=== PATIENT | male | born 1955 | race African-American/Black ===

== ENCOUNTER 2018-06-14 19:37 | Emergency (ER) | payer OTHER ==
--- OUTSIDE RECORDS SUMMARY | 2018-06-14 19:40 | XMS REPORT | Clinical Summary ---
:1955 Author Organization [facility] Address [address] [place] [address] Care Team Providers Name Role Phone Jeromy Osorio MD Primary Care Provider Allergies Active Allergy Reactions Severity Noted Date Comments No Known Drug Allergies 01/03/2016 Medications Medication Sig Dispensed Refills Start Date End Date Status atorvastatin Take 80 mg by 1 01/09/2016 Active (LIPITOR) 80 MG mouth nightly. tablet carvedilol (COREG) Take 25 mg by 3 01/15/2016 Active 25 MG tablet mouth 2 (two) times a day. warfarin (COUMADIN) Take 5 mg by 99 12/27/2015 Active 5 MG tablet mouth once daily. benzonatate TAKE 1 CAPSULE 30 capsule 0 04/23/2016 Active (TESSALON) 200 MG BY MOUTH EVERY capsule 6 HOURS NEEDED FOR COUGH amIODarone Take 200 mg by 0 Active (PACERONE) 200 MG mouth daily. tablet umeclidinium Inhale 62.5 0 Active (INCRUSE ELLIPTA) mcg daily. 62.5 mcg/actuation blister with device ondansetron ODT Take 4 mg by 0 Active (ZOFRAN-ODT) 4 MG mouth every 8 disintegrating (eight) hours tablet as needed for nausea or vomiting. omeprazole Take 40 mg by 0 Active (PriLOSEC) 40 MG mouth daily. capsule fexofenadine Take 180 mg by 0 Active (LOCO) 180 MG mouth daily. tablet ADVAIR DISKUS 250-50 INHALE 1 PUFF 60 each 3 03/21/2017 Active mcg/dose DISKUS PO BID. sacubitril-valsartan Entresto 24 mg-26 mg tablet 0 Active (ENTRESTO) 24-26 mg Take 1 tablet twice a day by oral route. tablet per tablet furosemide (LASIX) TAKE 1 TABLET 90 tablet 0 03/23/2018 Active 40 mg tablet BY MOUTH EVERY DAY potassium chloride TAKE 1 TABLET 90 tablet 0 04/23/2018 Active (K-DUR,KLOR-CON) 10 BY MOUTH EVERY MEQ CR tablet DAY losartan (COZAAR) 50 Take 50 mg by 3 02/04/2016 Discontinued MG tablet mouth once 8 daily. furosemide (LASIX) Take 40 mg by 0 Discontinued 40 mg tablet mouth 2 (two) 8 times a day. furosemide (LASIX) TAKE 1 TABLET 30 tablet 0 05/22/2017 Discontinued 40 mg tablet BY MOUTH EVERY 8 DAY furosemide (LASIX) TAKE 1 TABLET 30 tablet 0 06/26/2017 Discontinued 40 mg tablet BY MOUTH EVERY 8 DAY potassium chloride TAKE 1 TABLET 30 tablet 0 08/14/2017 Discontinued (K-DUR,KLOR-CON) 10 BY MOUTH EVERY 8 MEQ CR tablet DAY furosemide (LASIX) TAKE 1 TABLET 30 tablet 0 09/08/2017 Discontinued 40 mg tablet BY MOUTH EVERY 8 DAY potassium chloride TAKE 1 TABLET 30 tablet 0 09/16/2017 Discontinued (K-DUR,KLOR-CON) 10 BY MOUTH EVERY 8 MEQ CR tablet DAY furosemide (LASIX) TAKE 1 TABLET 30 tablet 0 10/06/2017 Discontinued 40 mg tablet BY MOUTH EVERY 8 DAY potassium chloride TAKE 1 TABLET 90 tablet 0 10/23/2017 Discontinued (K-DUR,KLOR-CON) 10 BY MOUTH EVERY 8 MEQ CR tablet DAY furosemide (LASIX) TAKE 1 TABLET 90 tablet 0 11/03/2017 Discontinued 40 mg tablet BY MOUTH EVERY 8 DAY potassium chloride TAKE 1 TABLET 90 tablet 0 01/23/2018 Discontinued (K-DUR,KLOR-CON) 10 BY MOUTH EVERY 8 MEQ CR tablet DAY levoFLOXacin Take 1 tablet 7 tablet 0 02/12/2018 (LEVAQUIN) 500 MG (500 mg total) 8 tablet by mouth daily for 7 days. Active Problems No known active problems Resolved Problems Problem Noted Date Resolved Date Congestive heart failure 10/13/2017 03/24/2018 Noctural Wheezing and coughing- likely secondary to CHF 03/11/2017 03/24/2018 COPD (chronic obstructive pulmonary disease) 03/24/2018 Encounters Date Type Specialty Care Team Description 04/23/2018 Refill PulmonKerwin Rodriguez MD 03/21/2018 Refill Pulmonology Kerwin Boogie MD 03/16/2018 Clinical Support Pulmonology Maikol Allred Chronic obstructive pulmonary disease, unspecified COPD type (HCC) 03/03/2018 Office Visit Pulmonology Kerwin Boogie MD Chronic obstructive pulmonary disease, unspecified COPD type (Primary Dx) 02/12/2018 Telephone Pulmonology Kerwin Boogie MD 01/23/2018 Refill PulmonKerwin Rodriguez MD 11/03/2017 Refill Pulmonology Kerwin Boogie MD 10/23/2017 Refill Pulmonology Kerwin Boogie MD 10/13/2017 Office Visit Pulmonology Kerwin Boogie MD Chronic obstructive pulmonary disease, unspecified COPD type (Primary Dx); Congestive heart failure, unspecified congestive heart failure chronicity, unspecified congestive heart failure type 10/05/2017 Refill Pulmonology Kerwin Boogie MD 09/16/2017 Refill Pulmonology Kerwin Boogie MD 09/08/2017 Refill Pulmonology Kerwin Boogie MD 08/13/2017 Refill Pulmonology Kerwin Boogie MD 06/26/2017 Refill Pulmonology Kerwin Boogie MD after 06/13/2017 Immunizations Name Dates Previously Given Next Due FLUZONE HIGH-DOSE PF 03/07/2016 Pneumococcal Conjugate 13-Valent 03/06/2015 Pneumococcal Polysaccharide 07/27/2009 Family History Medical History Relation Name Comments Diabetes Mother Heart attack Mother Stroke Mother Relation Name Status Comments Mother Social History Tobacco Use Types Packs/Day Years Used Date Never Smoker Smokeless Tobacco: Never Used Alcohol Use Drinks/Week oz/Week Comments No Sex Assigned at Date Recorded Not on file Job Start Date Occupation Industry Not on file Not on file Not on file Travel History Travel Start Travel End No recent travel history available. Last Filed Vital Signs Vital Sign Reading Time Taken Blood Pressure 92/60 03/03/2018 4:43 PM CDT Pulse 59 03/03/2018 4:43 PM CDT Temperature 36.7 C (98.1 F) 03/03/2018 4:43 PM CDT Respiratory Rate 14 03/03/2018 4:43 PM CDT Oxygen Saturation 95% 03/03/2018 4:43 PM CDT Inhaled Oxygen Concentration - - Weight 68 kg (150 lb) 03/03/2018 4:43 PM CDT Height 170.2 cm (5' 7") 10/13/2017 4:37 PM CDT Body Mass Index 23.49 03/03/2018 4:43 PM CDT Plan of Treatment Date Type Specialty Care Team Description 06/25/2018 Office Visit Pulmonology Kerwin Boogie MD [address] [facility] [address] [place] [id number] Health Maintenance Due Date Last Done Comments COLON CANCER SCREENING 2004 SHINGLES VACCINES (1 of 2) 2004 INFLUENZA VACCINE 01/14/2018 03/07/2016 Results Not on fileafter 06/13/2017 Insurance Payer Benefit Plan / Group Subscriber ID Type Phone Address [facility] x[facility]xxx O Advance Directives Patient has advance care planning documents on file. For more information, please contact:[place] [address]
[2018-06-14 21:19] LABS: Absolute Lymphocytes (CBC) 1.5 K/uL (0.7-4.9); Absolute Monocytes 0.5 K/uL (0.1-1.3); Absolute Neutrophil 3.5 K/uL (1.8-8.0); Basophils % 0.8 % (0-1.3); Eosinophils % 1.7 % (0-4.4); Hematocrit 42.6 % (39.6-49.0); Lymphocytes % 26.6 % (15.3-44.8); MPV 7.7 fL (7.6-11.3); Monocytes % 8.6 % (3.3-12.3); RBC Red Blood Cell Count 4.96 M/uL (4.33-5.43)
[2018-06-14 21:21] LABS: Protime INR 1.88
[2018-06-14 21:37] LABS: Albumin 3.3 g/dL (3.4-5.0); Bilirubin Direct 0.1 mg/dL (0-0.2); Bilirubin Total 0.5 mg/dL (0.2-1.0); Magnesium 2.2 mg/dL (1.8-2.4); Protein, Total 7.3 g/dL (6.4-8.2); Troponin (Emerg Dept Use Only) 0.02 ng/mL (0.0-0.045)
--- NOTE | 2018-06-14 21:54 | RAD REPORT ---
EXAM DESCRIPTION: RAD - Chest Single View - 06/14/2018 9:35 pm CLINICAL HISTORY: shortness of breath Chest pain. COMPARISON: No comparisons FINDINGS: Portable technique limits examination quality. Mild interstitial pulmonary edema is present. The heart is mildly enlarged in size with a dual lead p acer/defibrillator device present. No displaced fractures. IMPRESSION: Mild CHF.
[2018-06-14 22:53] LABS: Urine Blood 1+ (NEG); Urine Glucose NEGATIVE (NEG); Urine Protein NEGATIVE (NEG); Urine pH 6.5 (5.0-7.0)
--- NOTE | 2018-06-14 23:33 | EDPHYS ---
Physician Documentation [facility] Name: Pepe Cruz Age: 62 yrs Sex: Male : 1955 Arrival Date: 06/14/2018 Time: 19:41 Bed 20 Private MD: out of town, doctor ED Physician Luis E Bland HPI: 06/14 20:59 This 62 yrs old Black Male presents to ER via Ambulatory with complaints of Shoulder jmm Pain, Back Pain. 20:59 The patient presents with pain that is acute, with no known mechanism of injury. The jmm symptoms are located in the left trapezius. Onset: The symptoms/episode began/occurred last night. The pain does not radiate. This is a 62 year old male with a history of htn, heart failure, copd that presents to the ED with left sided back pain and shortness of breath beginning last night. shortness of breath was relieved this morning with inhaler. patient currently denies chest pain, fever. family sates the patient had a cough earlier today. . Historical: - Allergies: 20:13 No Known Allergies; fc - Home Meds: 20:13 Advair Diskus inhalation Inhl 1 puff 2 times per day [Active]; Incruse Ellipta 62.5 fc mcg/actuation inhalation dsdv 1 puff once daily [Active]; warfarin 5 mg Oral tab 1 tab daily but on Friday only 1/2 tab [Active]; atorvastatin 80 mg oral tab 1 tab nightly [Active]; furosemide 40 mg Oral tab 1 tab once daily [Active]; Entresto 49-51 mg oral tab 1 tab daily [Active]; carvedilol 25 mg oral tab 1 tab 2 times per day [Active]; omeprazole 40 mg Oral cpDR 1 cap once daily [Active]; potassium chloride 10 mEq Oral cpER 1 cap once daily [Active]; - PMHx: 20:13 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 - Social history:: Smoking status: Patient/guardian denies using tobacco. - Ebola Screening: : Patient negative for fever greater than or equal to 101.5 degrees Fahrenheit, and additional compatible Ebola Virus Disease symptoms Patient denies exposure to infectious person Patient denies travel to an Ebola-affected area in the 21 days before illness onset. ROS: 20:59 Constitutional: Negative for fever, chills, and weight loss, Cardiovascular: Negative jmm for chest pain, palpitations, and edema. 20:59 Abdomen/GI: Negative for abdominal pain, nausea, vomiting, diarrhea, and constipation. 20:59 Respiratory: Positive for shortness of breath. 20:59 Back: Positive for pain with movement. 20:59 All other systems are negative. Exam: 20:59 Head/Face: atraumatic. Eyes: EOMI, no conjunctival erythema appreciated ENT: Moist jmm Mucus Membranes Neck: Trachea midline, Supple Chest/axilla: Normal chest wall appearance and motion. 20:59 Abdomen/GI: Non distended, soft Back: Normal ROM Skin: General appearance color normal MS/ Extremity: Moves all extremities, no obvious deformities appreciated, no edema noted to the lower extremities Neuro: Awake and alert, normal gait Psych: Behavior is normal, Mood is normal, Patient is cooperative and pleasant 20:59 Constitutional: The patient appears in no acute distress, alert, awake. 20:59 Cardiovascular: Rate: normal, Rhythm: regular, Pulses: no pulse deficits are appreciated. 20:59 Respiratory: the patient does not display signs of respiratory distress, Respirations: normal, Breath sounds: are clear throughout. 20:59 Abdomen/GI: Inspection: abdomen appears normal. 20:59 Back: pain, that is mild, of the left trapezius. 20:59 Skin: Appearance: Color: normal in color. 20:59 Neuro: Orientation: is normal, Mentation: is normal, Memory: is normal. 20:59 Psych: Behavior/mood is pleasant, cooperative. Vital Signs: 19:53 BP 110 / 78; Pulse 77; Resp 18; Temp 97.7(O); Pulse Ox 98% on R/A; Weight 71.21 kg (R); fc Height 5 ft. 7 in. (170.18 cm) (R); Pain 4/10; 20:38 BP 116 / 93; Pulse 59; Resp 18; Pulse Ox 99% on R/A; tl2 21:29 BP 112 / 78; Pulse 78; Resp 24; Pulse Ox 96% on R/A; tl2 22:30 BP 121 / 86; Pulse 83; Resp 16; Pulse Ox 94% on R/A; tl2 23:21 BP 120 / 89; Pulse 96; Resp 18; Pulse Ox 94% on R/A; tl2 23:58 BP 116 / 90; Pulse 88; Resp 18; Pulse Ox 94% on R/A; tl2 19:53 Body Mass Index 24.59 (71.21 kg, 170.18 cm) fc MDM: 20:45 Patient medically screened. [facility] 21:54 Data reviewed: vital signs, nurses notes. Transition of care: After a detail discussion [facility] of the patient's case, care is transferred to Quinn OTERO 23:28 Data reviewed: lab test result(s), EKG, radiologic studies, CT scan, plain films. Data jr8 interpreted: Pulse oximetry: on room air is 94 %. Interpretation: normal. Counseling: I had a detailed discussion with the patient and/or guardian regarding: the historical points, exam findings, and any diagnostic results supporting the discharge/admit diagnosis, lab results, radiology results, the need for outpatient follow up, a ruling technician, a family practitioner, to return to the emergency department if symptoms worsen or persist or if there are any questions or concerns that arise at home. 06/14 20:55 Order name: Basic Metabolic Panel [facility] 06/14 20:55 Order name: CBC with Diff [facility] 06/14 20:55 Order name: LFT's [facility] 06/14 20:55 Order name: Magnesium [facility] 06/14 20:55 Order name: NT PRO-BNP; Complete Time: 21:44 [facility] 06/14 20:55 Order name: PT-INR; Complete Time: 21:44 [facility] 06/14 20:55 Order name: Troponin (emerg Dept Use Only); Complete Time: 21:44 [facility] 06/14 20:55 Order name: XRAY Chest (1 view); Complete Time: 22:13 [facility] 06/14 20:55 Order name: D-Dimer; Complete Time: 21:44 [facility] 06/14 20:55 Order name: Basic Metabolic Panel; Complete Time: 21:44 [facility] 06/14 20:55 Order name: CBC with Automated Diff; Complete Time: 21:44 [facility] 06/14 20:55 Order name: Liver (Hepatic) Function; Complete Time: 21:44 [facility] 06/14 20:55 Order name: Magnesium; Complete Time: 21:44 [facility] 06/14 22:47 Order name: Urine Dipstick--Ancillary (enter results); Complete Time: 22:55 [facility] 06/14 20:55 Order name: EKG; Complete Time: 20:56 [facility] 06/14 20:55 Order name: Cardiac monitoring; Complete Time: 21:15 [facility] 06/14 20:55 Order name: EKG - Nurse/Tech; Complete Time: 21:15 [facility] 06/14 20:55 Order name: IV Saline Lock; Complete Time: 21:08 [facility] 06/14 20:55 Order name: Labs collected and sent; Complete Time: 21:08 [facility] 06/14 20:55 Order name: O2 Per Protocol; Complete Time: 21:08 [facility] 06/14 20:55 Order name: O2 Sat Monitoring; Complete Time: 21: [facility] 06/14 21:54 Order name: CT Chest For PE Angio [facility] Administered Medications: 23:45 Drug: fentaNYL (PF) 50 mcg Route: IVP; Site: right antecubital; tl2 06/15 00:02 Follow up: Response: No adverse reaction; Pain is decreased tl2 06/14 23:46 Drug: Zofran 4 mg Route: IVP; Site: right antecubital; tl2 06/15 00:02 Follow up: Response: No adverse reaction tl2 Disposition: 03:40 Co-signature as Attending Physician, Luis E Bland MD. Disposition: 06/14/18 23:32 Discharged to Home. Impression: Pain in left shoulder. - Condition is Stable. - Discharge Instructions: Joint Pain, Shoulder Pain. - Prescriptions for Tylenol- Codeine #3 300-30 mg Oral Tablet - take 2 tablets by ORAL route every 6 hours As needed; 12 tablet. - Medication Reconciliation Form, Thank You Letter, Antibiotic Education, Prescription Opioid Use form. - Follow up: Private Physician; When: 2 - 3 days; Reason: Recheck today's complaints, Continuance of care, Re-evaluation by your physician. - Problem is new. - Symptoms have improved. Signatures: Dispatcher [employer] EDMS Paul Mills PA PA jmm Chretien, Felicia, RN RN Quinn Villalobos PA PA jr8 Hawa Boateng RN RN tl2 Luis E Bland MD MD gs Corrections: (The following items were deleted from the chart) 00:03 06/14 23:32 06/14/2018 23:32 Discharged to Home. Impression: Pain in left shoulder. tl2 Condition is Stable. Forms are Medication Reconciliation Form, Thank You Letter, Antibiotic Education, Prescription Opioid Use. Follow up: Private Physician; When: 2 - 3 days; Reason: Recheck today's complaints, Continuance of care, Re-evaluation by your physician. Problem is new. Symptoms have improved. jr8
--- NOTE | 2018-06-14 23:33 | ER ---
Nurse's Notes [facility] Name: Pepe Cruz Age: 62 yrs Sex: Male : 1955 Arrival Date: 06/14/2018 Time: 19:41 Bed 20 Private MD: out of town, doctor Diagnosis: Pain in left shoulder Presentation: 06/14 19:53 Presenting complaint: Patient states: that he woke up this am with left back pain under fc his shoulder blade, felt as if he had a gas bubble. Also had shortness of breath. Denies any nausea, vomiting or chest pain. One week ago had prostate biopsy. Transition of care: patient was not received from another setting of care. Onset of symptoms was June 14, 2018 at 09:00. Risk Assessment: Do you want to hurt yourself or someone else? Patient reports no desire to harm self or others. Initial Sepsis Screen: Does the patient meet any 2 criteria? No. Patient's initial sepsis screen is negative. Does the patient have a suspected source of infection? No. Patient's initial sepsis screen is negative. Care prior to arrival: None. 19:53 Method Of Arrival: Ambulatory 19:53 Acuity: BARBARA 3 fc Historical: - Allergies: 20:13 No Known Allergies; fc - Home Meds: 20:13 Advair Diskus inhalation Inhl 1 puff 2 times per day [Active]; Incruse Ellipta 62.5 fc mcg/actuation inhalation dsdv 1 puff once daily [Active]; warfarin 5 mg Oral tab 1 tab daily but on Friday only 1/2 tab [Active]; atorvastatin 80 mg oral tab 1 tab nightly [Active]; furosemide 40 mg Oral tab 1 tab once daily [Active]; Entresto 49-51 mg oral tab 1 tab daily [Active]; carvedilol 25 mg oral tab 1 tab 2 times per day [Active]; omeprazole 40 mg Oral cpDR 1 cap once daily [Active]; potassium chloride 10 mEq Oral cpER 1 cap once daily [Active]; - PMHx: 20:13 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 - Social history:: Smoking status: Patient/guardian denies using tobacco. - Ebola Screening: : Patient negative for fever greater than or equal to 101.5 degrees Fahrenheit, and additional compatible Ebola Virus Disease symptoms Patient denies exposure to infectious person Patient denies travel to an Ebola-affected area in the 21 days before illness onset. Screenin:38 Abuse screen: Denies threats or abuse. Nutritional screening: No deficits noted. tl2 Tuberculosis screening: No symptoms or risk factors identified. Fall Risk None identified. Assessment: 20:38 General: Appears in no apparent distress. uncomfortable, Behavior is calm, cooperative, tl2 appropriate for age. Pain: Complains of pain in left scapular area Pain does not radiate. Pain currently is 6 out of 10 on a pain scale. Aggravated by increased activity, inhale. Neuro: Level of Consciousness is awake, alert, obeys commands, Oriented to person, place, time, situation. Cardiovascular: Denies chest pain. Respiratory: Reports cough that is Airway is patent Respiratory effort is even, unlabored, Respiratory pattern is regular, symmetrical. GI: No signs and/or symptoms were reported involving the gastrointestinal system. : No signs and/or symptoms were reported regarding the genitourinary system. Derm: Skin is pink, warm \T\ dry. 21:30 Reassessment: Patient appears in no apparent distress at this time. No changes from tl2 previously documented assessment. Patient and/or family updated on plan of care and expected duration. Pain level reassessed. Patient is alert, oriented x 3, equal unlabored respirations, skin warm/dry/pink. awaiting lab results. 22:31 Reassessment: Patient appears in no apparent distress at this time. Patient and/or tl2 family updated on plan of care and expected duration. Pain level reassessed. Patient is alert, oriented x 3, equal unlabored respirations, skin warm/dry/pink. pt returned from CT. 23:58 Reassessment: Patient appears in no apparent distress at this time. Patient and/or tl2 family updated on plan of care and expected duration. Pain level reassessed. Patient is alert, oriented x 3, equal unlabored respirations, skin warm/dry/pink. pt and family verbalized understanding of discharge instructions, need for follow up and prescription usage Patient states feeling better. Vital Signs: 19:53 BP 110 / 78; Pulse 77; Resp 18; Temp 97.7(O); Pulse Ox 98% on R/A; Weight 71.21 kg (R); fc Height 5 ft. 7 in. (170.18 cm) (R); Pain 4/10; 20:38 BP 116 / 93; Pulse 59; Resp 18; Pulse Ox 99% on R/A; tl2 21:29 BP 112 / 78; Pulse 78; Resp 24; Pulse Ox 96% on R/A; tl2 22:30 BP 121 / 86; Pulse 83; Resp 16; Pulse Ox 94% on R/A; tl2 23:21 BP 120 / 89; Pulse 96; Resp 18; Pulse Ox 94% on R/A; tl2 23:58 BP 116 / 90; Pulse 88; Resp 18; Pulse Ox 94% on R/A; tl2 19:53 Body Mass Index 24.59 (71.21 kg, 170.18 cm) fc Vitals: 21:29 Cardiac Rhythm Assessment Irregular Sinus rhythm W/unifocal PVC's. tl2 22:30 Cardiac Rhythm Assessment Irregular Sinus rhythm W/unifocal PVC's. tl2 ED Course: 19:41 Patient arrived in ED. es 19:42 out of town, doctor is Private Physician. es 19:53 Arm band placed on Patient placed in an exam room, on a stretcher. fc 19:55 Triage completed. fc 20:19 Paul Mills PA is PHCP. [facility] 20:19 Luis E Bland MD is Attending Physician. m 20:38 Hawa Boateng RN is Primary Nurse. tl2 20:38 Patient has correct armband on for positive identification. Bed in low position. Call tl2 light in reach. Side rails up X 1. Adult w/ patient. 21:23 Inserted saline lock: 20 gauge in right antecubital area, using aseptic technique. oe Blood collected. 21:35 Notified Nurse Practitioner and/or Physician Granulator Tender of a critical lab result(s), [id number] D-Dimer. 21:36 XRAY Chest (1 view) In Process Unspecified. EDMS 22:[address] via stretcher. 2 22:12 PHCP role handed off by Paul Mills PA jr8 22:12 Quinn Hirsch [facility] jr8 22:23 CT completed. Patient tolerated procedure well. Patient moved back from CT. 2 22:25 CT Chest For PE Angio In Process Unspecified. EDMS 23:58 No provider procedures requiring assistance completed. IV discontinued, intact, tl2 bleeding controlled, No redness/swelling at site. Pressure dressing applied. Administered Medications: 23:45 Drug: fentaNYL (PF) 50 mcg Route: IVP; Site: right antecubital; tl2 06/15 00:02 Follow up: Response: No adverse reaction; Pain is decreased tl2 06/14 23:46 Drug: Zofran 4 mg Route: IVP; Site: right antecubital; tl2 06/15 00:02 Follow up: Response: No adverse reaction tl2 Outcome: 06/14 23:32 Discharge ordered by . jr8 23:58 Discharged to home ambulatory, with family. tl2 23:58 Condition: stable 23:58 Discharge instructions given to patient, family, Instructed on discharge instructions, follow up and referral plans. medication usage, Demonstrated understanding of instructions, follow-up care, medications, Prescriptions given X 1. 06/15 00:03 Patient left the ED. tl2 Signatures: Dispatcher [employer] EDMS Paul Mills PA PA jmm Salyer, Edna es Chretien, Felicia, RN RN Quinn Hirsch PA PA jr8 Mary Whitehead RN RN ak1 Hawa Boateng RN RN tl2 Fady Pitts [place] 2 Corrections: (The following items were deleted from the chart) 06/14 20:13 19:53 Presenting complaint: Patient states: that he woke up this am with left back pain fc under his shoulder blade, felt as if he had a gas bubble. Also had shortness of breath. Denies any nausea, vomiting or chest pain. fc 20:14 20:13 BP 110 / 78; Pulse 77bpm; Resp 18bpm; Pulse Ox 98% RA; Temp 97.7F Oral; 71.21 kg fc Reported; Height 5 ft. 7 in. Reported; BMI: 24.5; Pain 4/10; fc 21:31 21:29 Pulse 78bpm; Resp 24bpm; Pulse Ox 96% RA; tl2 tl2
[2018-06-14] MEDS ORDERED: FENTANYL CITR 100 MCG/2 ML ONE (23:42)
[2018-06-14] MEDS ORDERED: ONDANSETRON 4 MG/2 ML VIAL ONE (23:43)
--- NOTE | 2018-06-15 07:38 | EKG ---
Test Date: 2018-06-14 Test Time: 21:11:29 Food Products Tester: REAL MEASUREMENT RESULTS: Intervals: Rate: 58 PA: 282 QRSD: 110 QT: 452 QTc: 443 Nadeau: P: 92 PA: 282 QRS: -52 T: 195 INTERPRETIVE STATEMENTS: Atrial-paced rhythm with prolonged AV conduction with occasional ventricular- paced complexes Left anterior fascicular block Cannot rule out Inferior infarct, age undetermined Anterior infarct, age undetermined Abnormal ECG No previous ECG available for comparison Electronically Signed On 06-15-18 07:37:49 RN RESEARCH by Huang Cortez
--- NOTE | 2018-06-15 09:34 | RAD REPORT ---
EXAM DESCRIPTION: CT - Chest For Pe Angio - 06/14/2018 10:25 pm CLINICAL HISTORY: Chest pain. shortness of breath COMPARISON: No comparisons TECHNIQUE: CT angiogram of the pulmonary arteries was performed with MIP. All CT scans are performed using dose optimization technique as appropriate and may include automated exposure control or mA/KV adjustment according to patient size. FINDINGS: No evidence of pulmonary thromboembolism. Ectatic thoracic aorta is noted measuring up to 3.9 cm. There is significant cardiomegaly present. Advanced COPD is noted with mild bilateral pulmonary opacities seen likely representing mild pulmonar y edema. No significant pericardial or pleural fluid. No concerning bony finding. IMPRESSION: No evidence of pulmonary thromboembolism. Significant cardiomegaly is present. Prominent COPD with mild to moderate pulmonary edema.
== END 2018-06-15 00:03 | disposition home or self-care (01) ==
LOC: ER 19:37
DX: M25.512 Pain in left shoulder (principal); Z95.810 Presence of automatic (implantable) cardiac defibrillator; I10 Essential (primary) hypertension; E78.00 Pure hypercholesterolemia, unspecified; J43.9 Emphysema, unspecified; Z79.01 Long term (current) use of anticoagulants
CPT/HCPCS: 36415; 71045; 71275; 80048; 80076; 81003; 83735; 83880; 84484; 85025; 85379; 85610; 93005; 96374; 96375; 99284; J2405; J3010; Q9967